=== PATIENT | male | born 2000 | race Caucasian/White ===

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

== ENCOUNTER → 2020-01-14 | Outpatient (CLI) | payer BC ==
[2020-01-14 09:12] LABS: HEMATOCRIT 41.9 % (42.0-52.0); MEAN CELL VOLUME 91.3 fl (80.0-94.0); MEAN CORPUSCULAR HGB 30.7 pg (27.0-31.0); MEAN CORPUSCULAR HGB CONC 33.7 g/dl (33.0-37.0); RED BLOOD COUNT 4.59 10*6/uL (4.50-5.90); RED CELL DISTRI WIDTH 12.5 % (0-14.5); WHITE BLOOD COUNT 8.4 10*3/uL (4.8-10.8)
[2020-01-14 09:42] LABS: ALBUMIN 4.4 gm/dl (3.1-4.5); ALKALINE PHOSPHATASE 68 U/L (45-117); BUN 17 mg/dl (7-24); CHLORIDE 108 mmol/L (98-107); CHOLESTEROL 139 mg/dL (<200); HDL CHOLESTEROL 58 mg/dl (40-60); LDL CHOLESTEROL 62 mg/dL (9-159); POTASSIUM 3.7 mmol/L (3.5-5.1); SGOT/AST 9 IU/L (3-35); SGPT/ALT 13 U/L (12-78); SODIUM 140 mmol/L (136-145); TOTAL PROTEIN 7.9 gm/dL (6.4-8.2); TRIGLYCERIDES 94 mg/dl (<150); VLDL CHOLESTEROL 19 mg/dL (6-40)
[2020-01-14 11:09] LABS: VITAMIN D, 25-HYDROXY 19.6 ng/mL (30-100)
== END | disposition home or self-care (01) ==
LOC: LAB 08:49
PROVIDERS: ATTEND Family Medicine
DX: F41.1 Generalized anxiety disorder (principal); E74.00 Glycogen storage disease, unspecified; E55.9 Vitamin D deficiency, unspecified; R53.83 Other fatigue; Z13.220 Encounter for screening for lipoid disorders

== ENCOUNTER 2024-02-06 23:30 | Emergency (ER) | payer SELFPAY ==
[~2024-02-06] VITALS: Ht 175.2 cm; Wt 54.4 kg
[2024-02-06] MEDS ORDERED: MELOXICAM15 MG PO (23:55)
[2024-02-06] MEDS ORDERED: AMOX-CLAV 875-1 EACH PO (23:55)
[2024-02-06] MEDS ORDERED: Amoxicillin/Clavulanate Pota 875 MG TAB PO ONE (23:55)
[2024-02-06] MEDS ORDERED: Ketorolac Tromethamine 60 MG/2 ML VIAL IM ONE (23:55)
== END 2024-02-07 00:20 | disposition home or self-care (01) ==
LOC: ED 23:30
DX: K04.7 Periapical abscess without sinus (principal)